=== PATIENT | female | born 1930 | race Caucasian/White ===

== ENCOUNTER → 2016-12-27 | Outpatient (CLI) | payer MEDICARE ==
[~2016-12-27] MED LIST: IOHEXOL 300 MG/ML 75 ML VIAL. IV ONE
[2016-12-27 14:48] LABS: BASO # 0.1 x10^3/uL (0.0-0.2); BASO % 0 % (0-3); EOS # 0.4 x10^3/uL (0.0-0.7); EOS % 3 % (0-3); HEMATOCRIT 42.8 % (36.0-47.0); HEMOGLOBIN 14.4 g/dL (12.0-15.5); LYMPH # 4.6 x10^3/uL (1.0-4.8); LYMPH % 37 % (24-48); MEAN CORPUSCULAR HEMOGLOBIN 31 pg (25-35); MEAN CORPUSCULAR HGB CONC 34 g/dL (31-37); MEAN CORPUSCULAR VOLUME 93 fL (79-100); MONO # 1.4 x10^3/uL (0.0-1.1); MONO % 12 % (0-9); NEUT % 48 % (31-73); PLATELET COUNT 252 x10^3/uL (140-400); RED BLOOD COUNT 4.62 x10^6/uL (3.50-5.40); WHITE BLOOD COUNT 12.5 x10^3/uL (4.0-11.0)
[2016-12-27 14:56] LABS: CALCIUM 9.3 mg/dL (8.5-10.1); CREATININE 0.7 mg/dL (0.6-1.0); GFR 79.5; POTASSIUM 4.2 mmol/L (3.5-5.1)
--- NOTE | 2016-12-27 15:48 | RAD ---
EXAM: CT ANGIOGRAPHY OF THE CHEST WITH AND WITHOUT INTRAVENOUS CONTRAST. HISTORY: Shortness of breath, elevated d-dimer. TECHNIQUE: Computed tomographic angiography of the chest was performed before and after the intravenous administration of 75 mL Omnipaque 300. 3-D maximum intensity projections were also performed. COMPARISON: None. FINDINGS: Images of the upper abdomen reveal changes of cholecystectomy. There is a <3 mm calculus in the right renal collecting system. Bone windows reveal no suspicious lesions. There are chronic left rib fractures. Spinal stimulator electrodes are noted. There are extensive bilateral pulmonary emboli involving right left lower lobe, right lower lobe and right upper lobe. There is also a relatively small saddle embolus involving both main pulmonary arteries. There is no aortic dissection or aneurysm. There are no pathologically enlarged mediastinal or axillary lymph nodes. There is a small pericardial effusion. There are trace pleural effusions on the right greater than left. The heart is mildly enlarged. The thyroid gland is surgically absent or severely atrophic. There is a small airspace opacity in the azygoesophageal recess indicating atelectasis or mild infiltrate. There is a calcified granuloma in the right upper lobe. There is mild atelectasis dependently. IMPRESSION: 1. Extensive bilateral pulmonary emboli. 2. Mild cardiomegaly. Small pericardial and small bilateral pleural effusions. These findings were called to Dr. Stone by Theodore Winston on 12/27/2016 at 1525. *One or more of the following individualized dose reduction techniques were utilized for this examination: 1. Automated exposure control. 2. Adjustment of the mA and/or kV according to patient size. 3. Use of iterative reconstruction technique.
== END | disposition home or self-care (01) ==
LOC: CT 14:17
PROVIDERS: ATTEND Family Medicine
DX: I51.7 Cardiomegaly (principal); I26.99 Other pulmonary embolism without acute cor pulmonale; J90 Pleural effusion, not elsewhere classified; I31.3 Pericardial effusion (noninflammatory); J98.11 Atelectasis; J84.10 Pulmonary fibrosis, unspecified; R79.1 Abnormal coagulation profile; N20.0 Calculus of kidney; Z90.49 Acquired absence of other specified parts of digestive tract
CPT/HCPCS: 36415; 71275; 80048; 85025; Q9967

== ENCOUNTER 2017-01-01 14:34 | Emergency (ER) | payer MEDICARE ==
[~2017-01-01] VITALS: Ht 170.2 cm; Wt 81.6 kg
--- NOTE | 2017-01-01 15:31 | EKG ---
[address] [address] Test Date: 2017-01-01 Test Time: 14:55:21 Pat Name: ROMAIN BISWAS Department: Room: Gender: F New Accounts Representative: : 1930 Requested By: MANA BROWER Order Number: [id number] Reading MD: Measurements Intervals [place] Rate: 85 P: 32 OK: 152 QRS: 7 QRSD: 88 T: 29 QT: 374 QTc: 445 Interpretive Statements SINUS RHYTHM QRS(T) CONTOUR ABNORMALITY CONSISTENT WITH INFERIOR INFARCT PROBABLY OLD ABNORMAL ECG RI6.01 No previous ECG available for comparison
[2017-01-01 15:41] VITALS: BP 170/90
[2017-01-01 15:51] LABS: BASO # 0.1 x10^3/uL (0.0-0.2); BASO % 1 % (0-3); EOS # 0.2 x10^3/uL (0.0-0.7); EOS % 2 % (0-3); HEMATOCRIT 40.3 % (36.0-47.0); HEMOGLOBIN 13.7 g/dL (12.0-15.5); LYMPH # 3.4 x10^3/uL (1.0-4.8); LYMPH % 28 % (24-48); MEAN CORPUSCULAR HEMOGLOBIN 31 pg (25-35); MEAN CORPUSCULAR HGB CONC 34 g/dL (31-37); MEAN CORPUSCULAR VOLUME 92 fL (79-100); MONO # 1.7 x10^3/uL (0.0-1.1); MONO % 13 % (0-9); NEUT # 7.1 x10^3uL (1.8-7.7); NEUT % 57 % (31-73); PLATELET COUNT 296 x10^3/uL (140-400); RED BLOOD COUNT 4.38 x10^6/uL (3.50-5.40); RED CELL DISTRIBUTION WIDTH 13.6 % (11.5-14.5); WHITE BLOOD COUNT 12.5 x10^3/uL (4.0-11.0)
--- NOTE | 2017-01-01 15:53 | RAD ---
INDICATION: known PE, new R cp COMPARISON: CT chest 12/27/2016 FINDINGS: 2 views of chest obtained. Cardiac silhouette is not grossly enlarged. Stimulator again seen at central canal within the thoracic region. Mild blunting of costophrenic angles posteriorly. No definite new region of focal consolidation. IMPRESSION: No definite new region of focal airspace consolidation. Mild blunting of the costophrenic angles which could be seen with small pleural effusion or pleural thickening
[2017-01-01 16:00] LABS: ALBUMIN 3.1 g/dL (3.4-5.0); ALBUMIN/GLOBULIN RATIO 0.8 (1.0-1.7); CREATININE 0.7 mg/dL (0.6-1.0); GFR 79.5; POTASSIUM 4.1 mmol/L (3.5-5.1); TOTAL BILIRUBIN 0.9 mg/dL (0.2-1.0); TOTAL PROTEIN 6.8 g/dL (6.4-8.2)
--- NOTE | 2017-01-01 16:15 | PHYS DOC ---
General Chief Complaint: CHEST PAIN Stated Complaint: CHEST PAIN Time Seen by MD: 14:47 Source: patient, family Exam Limitations: no limitations Problems: History of Present Illness Initial Comments Patient is an 86-year-old female who comes to the ED with her spouse complaining of right sided posterior lower chest discomfort. Patient related that she was diagnosed last week with bilateral pulmonary emboli and that no inpatient treatment was necessary. She was started arms are also and has had no new or worsening symptoms until this morning. She states that this morning she noticed that with deep breaths she has moderate sharp discomfort she points to her right posterior lower chest. She denies any chest discomfort at rest and cannot reproduce it with other position or postural changes. She states she's had mild dyspnea on exertion since before her pulmonary emboli were diagnosed however no new changes with that. She denies any anterior left-sided chest pain, no nausea vomiting diaphoresis arm or neck symptoms. She has been taking Xarelto as prescribed and denies any noticeable bleeding. She denies any cough fever chills headache or body aches but states she was concerned about the discomfort so she has come for evaluation. ED vitals: 98.1, 95, 16, 159/89, 96% on room air CT angiogram results from December 27, 2016 obtained, impression extensive bilateral pulmonary emboli, mild cardiomegaly and small pericardial and small bilateral pleural effusions. Timing/Duration: 4-6 hours, other Severity: moderate Modifying Factors: improves with other (deep breaths only) Associated Symptoms: chest pain Allergies: Coded Allergies: codeine (Verified Allergy, Unknown, 01/01/17) Past Medical History Medical History: other (hypertension, hypothyroid, pulmonary emboli) Surgical History: other (cholecystectomy, hysterectomy, back surgery) Social History Smoker: non-smoker Alcohol: none Drugs: none Review of Systems Constitutional: denies chills, denies diaphoresis, denies fever, denies malaise , denies weakness Respiratory: see HPI, denies orthopnea, denies wheezing Cardiovascular: see HPI, denies edema, denies palpitations, denies syncope Gastrointestinal: denies abdominal pain, denies diarrhea, denies nausea, denies vomiting Genitourinary: denies dysuria, denies frequency, denies hematuria Musculoskeletal: denies back pain, denies joint swelling, denies neck pain Psychiatric/Neurological: denies headache, denies numbness, denies paresthesia , denies weakness Hematologic/Lymphatic: see HPI Physical Exam General Appearance: WD/WN, no apparent distress Eyes: bilateral eye normal inspection, bilateral eye PERRL, bilateral eye EOMI Ear, Nose, Throat: hearing grossly normal, normal ENT inspection Neck: non-tender, supple Respiratory: no respiratory distress, other (mildly decreased breath sounds at the bilateral bases otherwise chest nontender and chief complaint nonreproducible no rales rhonchi or wheezes) Cardiovascular: normal peripheral pulses, regular rate, rhythm Gastrointestinal: non tender, soft Back: no CVA tenderness, no vertebral tenderness Extremities: normal range of motion, non-tender, normal inspection, no calf tenderness, pelvis stable Neurologic/Psychiatric: warp clamper II-XII nml as tested, no motor/sensory deficits, alert, normal mood/affect, oriented x 3 Skin: normal color, warm/dry Orders, Labs, Meds On arrival chest pain not typical for acute coronary syndrome and patient is anticoagulated. Symptoms appear to be musculoskeletal, CBC and chemistry ordered as well as chest x-ray to evaluate for possible pneumonia, pneumothorax , or other abnormal finding. PATIENT: ROMAIN BISWAS ACCOUNT: [id number] : 1930 LOCATION: ER AGE: 86 SEX: F EXAM STATUS: REG ER ORD. PHYSICIAN: MANA BROWER DO REASON: known PE, new R cp PROCEDURE: CHEST PA & LATERAL INDICATION: known PE, new R cp COMPARISON: CT chest 12/27/2016 FINDINGS: 2 views of chest obtained. Cardiac silhouette is not grossly enlarged. Stimulator again seen at central canal within the thoracic region. Mild blunting of costophrenic angles posteriorly. No definite new region of focal consolidation. IMPRESSION: No definite new region of focal airspace consolidation. Mild blunting of the costophrenic angles which could be seen with small pleural effusion or pleural thickening DICTATED AND SIGNED BY: KERVIN KITCHEN MD DATE: 01/01/17 1548 CC: RAN STONE MD; MANA BROWER DO ~ CBC with mild leukocytosis White blood cell count 12,500 otherwise unremarkable labs. I discussed these findings with the patient she expressed no new or progressive symptoms. Unusually high ED volume and prolonged ED course patient and her spouse express eagerness for discharge home. They are agreeable to me calling Dr. Stone to discuss findings. 1619: Dr Stone paged to discuss pt. She is resting comfortably with stable VS, no discomfort except with deep breaths/cough. 1720: I discussed findings with Dr. Stone. He requests that we check repeat CTA to determine if there is further clotting, bleeding, pulmonary infarcts, or other conditions which might need emergent inpatient attention. I discussed this with the patient and she is agreeable. PATIENT: ROMAIN BISWAS ACCOUNT: [id number] : 1930 LOCATION: ER AGE: 86 SEX: F EXAM STATUS: REG ER ORD. PHYSICIAN: MANA BROWER DO REASON: further evaluate for more extensive clot on xarelto PROCEDURE: CT ANGIOGRAPHY CHEST CTA scan of the Chest with Contrast (Pulmonary Embolism protocol) 01/01/2017 Clinical History: Chest pain and shortness of breath. Recently diagnosed with PE. Technique: After the intravenous administration of 75 cc of Isovue-370, contiguous, 0.625 mm axial sections were obtained through the chest. 2.5 mm axial and 3D MIP coronal and sagittal reconstructed images were obtained. One or more of the following individualized dose reduction techniques were utilized for this study: 1. Automated exposure control. 2. Adjustment of the mA and/or kV according to patient size. 3. Use of iterative reconstruction technique. Findings: Comparison study is dated 12/27/2016. Nonocclusive filling defects consistent with pulmonary emboli are seen extending from the distal main pulmonary arteries to involve the right upper lobe, right middle lobe and right lower lobe pulmonary arteries and the left lower lobe pulmonary artery. These have improved since the previous examination. No new filling defect is seen. The heart is mildly enlarged. Atherosclerotic calcification of the thoracic aorta is seen. The thoracic aorta tapers normally. There is a small right pleural effusion. Bilateral lower lobe atelectasis and/or infiltrate is seen which has increased since the previous study. No pneumothorax is noted. IMPRESSION: Interval improvement in the bilateral pulmonary emboli as outlined above. No new pulmonary embolus is seen. Electronically signed by: Dave Valentin MD (01/01/2017 6:43 PM) [facility] DICTATED AND SIGNED BY: DAVE VALENTIN MD DATE: 01/01/171836 CC: RAN STONE MD; MANA BROWER DO ~ Impressions: Pulmonary emboli, improving on Xarelto Small right pleural effusion Questionable atelectasis versus infiltrate 1908: I discussed findings with the patient and her spouse. With slight leukocytosis and new symptoms with questionable infiltrates will treat for community-acquired pneumonia while persisting with Xarelto for pulmonary emboli. Interaction with Xarelto and Zithromax noted some Rocephin and doxycycline given in the emergency department prescription for doxycycline will be given. They are agreeable to close PCP follow-up. Signs and symptoms to monitor, indications for urgent return to ED, and the treatment plan discussed with patient and her spouse at length. They expressed agreement and understanding with the treatment plan. Departure Time of Disposition: 19:08 Disposition: 01 HOME, SELF-CARE Diagnosis: bilateral PE's (improving), small R effusion, Pneu Condition: GOOD Patient Instructions: Pleural Effusion-Brief, Pneumonia, Adult, Xyak-jg-[id number], Pulmonary Embolus Additional Instructions: Rest, no strenuous activity. Aggressive hydration with Gatorade or water. Wkme-cla-mjcizvr Tylenol and ibuprofen as needed. Continue current medications including his Xarelto. Prescription: Doxycycline Follow-up with Dr. Stone in 2-3 days for recheck. Return to ED with new or changing symptoms as discussed. MANA BROWER DO Jan 01, 2017 16:15
[2017-01-01] MEDS ORDERED: IOHEXOL 300 MG/ML 75 ML VIAL. IV ONE (18:00)
--- NOTE | 2017-01-01 18:46 | RAD ---
CTA scan of the Chest with Contrast (Pulmonary Embolism protocol) 01/01/2017 Clinical History: Chest pain and shortness of breath. Recently diagnosed with PE. Technique: After the intravenous administration of 75 cc of Isovue-370, contiguous, 0.625 mm axial sections were obtained through the chest. 2.5 mm axial and 3D MIP coronal and sagittal reconstructed images were obtained. One or more of the following individualized dose reduction techniques were utilized for this study: 1. Automated exposure control. 2. Adjustment of the mA and/or kV according to patient size. 3. Use of iterative reconstruction technique. Findings: Comparison study is dated 12/27/2016. Nonocclusive filling defects consistent with pulmonary emboli are seen extending from the distal main pulmonary arteries to involve the right upper lobe, right middle lobe and right lower lobe pulmonary arteries and the left lower lobe pulmonary artery. These have improved since the previous examination. No new filling defect is seen. The heart is mildly enlarged. Atherosclerotic calcification of the thoracic aorta is seen. The thoracic aorta tapers normally. There is a small right pleural effusion. Bilateral lower lobe atelectasis and/or infiltrate is seen which has increased since the previous study. No pneumothorax is noted. IMPRESSION: Interval improvement in the bilateral pulmonary emboli as outlined above. No new pulmonary embolus is seen. Electronically signed by: Dave Valentin MD (01/01/2017 6:43 PM) [facility]
[2017-01-01] MEDS ORDERED: DOXY100C14 PO (19:14)
[2017-01-01] MEDS ORDERED: CONTRAST GIVEN MC PRN (19:15)
[2017-01-01] MEDS ORDERED: DOXYCYCLINE HYCLATE 100 MG TABLET PO ONE (19:15)
[2017-01-01] MEDS ORDERED: cefTRIAXone IM 1 GM VIAL IM ONE (19:15)
[2017-01-01] MEDS ORDERED: LIDOCAINE 1% Multi-Dose 20 ML VIAL. ONE (19:25)
== END 2017-01-01 19:33 | disposition home or self-care (01) ==
LOC: ER 14:34
DX: I26.99 Other pulmonary embolism without acute cor pulmonale (principal); J90 Pleural effusion, not elsewhere classified; J18.9 Pneumonia, unspecified organism; E03.9 Hypothyroidism, unspecified; I10 Essential (primary) hypertension; Z86.711 Personal history of pulmonary embolism; Z90.49 Acquired absence of other specified parts of digestive tract; Z90.710 Acquired absence of both cervix and uterus; Z88.5 Allergy status to narcotic agent
CPT/HCPCS: 36415; 71020; 71275; 80053; 85025; 93005; 96372; 99285; J0696; Q9967

== ENCOUNTER → 2017-08-27 | Outpatient (CLI) | payer MEDICARE ==
[~2017-08-27] MED LIST changes: +DOXY100C14 PO; -IOHEXOL 300 MG/ML 75 ML VIAL. IV ONE
--- NOTE | 2017-08-27 10:46 | RAD ---
EXAM: Dual energy x-ray absorptiometry (DEXA). HISTORY: Postmenopausal female presents for osteoporosis screening. COMPARISON: None. TECHNIQUE: Dual energy x-ray absorptiometry of the lumbar spine and left hip was performed. Calculation of bone mineral density based on standard deviations above or below the expected young adult normal value (T-score) was completed. FINDINGS: The average bone mineral density in the L1 vertebral body L1-L3 vertebral bodies is 0.960 L1-L3 vertebral bodies is 1.079 g/cmxcm, corresponding with a T-score of -0.8. The average total bone mineral density in the left femoral neck is 0.766 g/cmxcm, corresponding with a T-score of -2.0. IMPRESSION: 1. Osteopenia measured at the left femoral neck. 2. Normal bone mineral density averaged for the L1-L3 vertebral bodies. Note: Definitions established by the World Health Organization: 1. Normal: T-score is -1.0 or above. 2. Osteopenia: T-score is between -1.0 and -2.5 . 3. Osteoporosis: T-score is -2.5 or below. Electronically signed by: Lisy Lovell MD (08/27/2017 10:43 AM) [id number]
== END | disposition home or self-care (01) ==
LOC: DXRAD 09:42
PROVIDERS: ATTEND Family Medicine
DX: Z13.820 Encounter for screening for osteoporosis (principal); M85.88 Other specified disorders of bone density and structure, other site
CPT/HCPCS: 77080

== ENCOUNTER 2018-07-03 18:12 | Inpatient (IN) | payer MEDICARE ==
[~2018-07-03] VITALS: Ht 170.2 cm; Wt 84.0 kg
[2018-07-03] MEDS ORDERED: IV RINGERS SOLUTION,LACTATED 1,000 ML IV SCH (18:31)
[2018-07-03 18:44] LABS: BASO % 0 % (0-3); EOS % 0 % (0-3); HEMATOCRIT 47.1 % (36.0-47.0); HEMOGLOBIN 15.7 g/dL (12.0-15.5); LYMPH # 2.3 x10^3/uL (1.0-4.8); LYMPH % 22 % (24-48); MEAN CORPUSCULAR HEMOGLOBIN 31 pg (25-35); MEAN CORPUSCULAR HGB CONC 33 g/dL (31-37); MEAN CORPUSCULAR VOLUME 93 fL (79-100); MONO # 0.8 x10^3/uL (0.0-1.1); MONO % 8 % (0-9); NEUT # 7.1 x10^3uL (1.8-7.7); NEUT % 69 % (31-73); PLATELET COUNT 265 x10^3/uL (140-400); RED BLOOD COUNT 5.04 x10^6/uL (3.50-5.40); RED CELL DISTRIBUTION WIDTH 14.9 % (11.5-14.5); WHITE BLOOD COUNT 10.2 x10^3/uL (4.0-11.0)
[2018-07-03] MEDS ORDERED: FAMOTIDINE 20 MG/2 ML VIAL IVP ONE (18:45)
[2018-07-03] MEDS ORDERED: ONDANSETRON PF 4 MG/2 ML VIAL. IV ONE (18:45)
--- NOTE | 2018-07-03 18:50 | EKG ---
[address] [address] Test Date: 2018-07-03 Test Time: 18:49:57 Pat Name: ROMAIN BISWAS Department: Room: Gender: F Dosimetrist: SUKHJINDER : 1930 Requested By: VANCE AN Order Number: [id number] Reading MD: Ronny Leon Measurements Intervals [place] Rate: 84 P: 48 OR: 156 QRS: 35 QRSD: 86 T: 62 QT: 378 QTc: 450 Interpretive Statements SINUS RHYTHM NONSPECIFIC ST-T WAVE CHANGES. Electronically Signed On 07-10-2018 11:42:55 CDT by Ronny Leon
[2018-07-03 18:54] LABS: ALBUMIN 3.3 g/dL (3.4-5.0); CALCIUM 9.1 mg/dL (8.5-10.1); CREATININE 0.9 mg/dL (0.6-1.0); DIRECT BILIRUBIN 0.3 mg/dL (0.0-0.2); GFR 59.2; POTASSIUM 3.2 mmol/L (3.5-5.1); TOTAL BILIRUBIN 1.5 mg/dL (0.2-1.0); TOTAL PROTEIN 7.2 g/dL (6.4-8.2)
--- NOTE | 2018-07-03 19:05 | ED.ADGEN ---
Past History Past Medical History: Hypertension, Hypothyroid, Other Past Surgical History: Cholecystectomy, Hysterectomy, Other Alcohol Use: None Drug Use: None Adult General Chief Complaint Chief Complaint ".. I ve been vomiting.. and so many diarrhea's today... I can't count... I have to go now..." HPI HPI Patient is a 88 year old female who presents with above hx and complaints of nausea and multiple episodes of diarrhea starting today. Patient denies any intake of bad food. Patient denies any specific ill contacts. No recent travel. Patient normally follows with Dr. Stone for management of her hypertension, thyroid meds. and anticoagulants. Patient has not been on any antibiotics recently. No history of C. difficile. Pt. normally follows with Dr. Stone. Review of Systems Review of Systems Constitutional: Denies fever or chills [] Eyes: Denies change in visual acuity, redness, or eye pain [] HENT: Denies nasal congestion or sore throat [] Respiratory: Denies cough or shortness of breath [] Cardiovascular: No additional information not addressed in HPI [] GI: Complaints of epigastric abdominal pain, nausea, vomiting, and diarrhea [] : Denies dysuria or hematuria [] Musculoskeletal: Denies back pain or joint pain [] Integument: Denies rash or skin lesions [] Neurologic: Denies headache, focal weakness or sensory changes [] Endocrine: Denies polyuria or polydipsia [] All other systems were reviewed and found to be within normal limits, except as documented in this note. Family History Family History Noncontributory Current Medications Current Medications Current Medications Medications (Trade) Dose Ordered Sig/Shannan Start Time Stop Time Status Last Admin Dose Admin Acetaminophen (Tylenol) 650 mg PRN Q4HRS PRN 07/03/18 21:00 07/04/18 20:59 Famotidine (Pepcid Vial) 20 mg 1X ONCE 07/03/18 18:45 07/03/18 18:47 DC 07/03/18 18:52 20 MG Lactated Ringer's 1,000 ml @ 160 mls/hr Q6H15M 07/03/18 21:00 07/04/18 00:32 160 MLS/HR Ondansetron HCl (Zofran) 4 mg PRN Q4HRS PRN 07/03/18 21:00 07/04/18 20:59 Allergies Allergies Allergies Coded Allergies Type Severity Reaction Last Updated Verified codeine Allergy Unknown 01/01/17 Yes Physical Exam Physical Exam Constitutional: Moderately acute distress, non-toxic appearance. [] HENT: Normocephalic, atraumatic, bilateral external ears normal, oropharynx dry, no oral exudates, nose normal. [] Eyes: PERRLA, EOMI, conjunctiva normal, no discharge. [] Neck: Normal range of motion, no tenderness, supple, no stridor. [] Cardiovascular:Heart rate regular rhythm, no murmur [] Lungs & Thorax: Bilateral breath sounds clear to auscultation [] Abdomen: Bowel sounds hyperactive , soft, generalized tenderness, no masses, no pulsatile masses. [] Patient having active brown-colored diarrhea currently. No focal rebound findings. Multiple surgery scars. Skin: Warm, dry, no erythema, no rash. [] Back: No tenderness, no CVA tenderness. [] Extremities: No tenderness, no cyanosis, no clubbing, ROM intact, no edema. [] Neurologic: Alert and oriented X 3, normal motor function, normal sensory function, no focal deficits noted. [] Psychologic: Affect anxious, judgement normal, mood normal. [] Current Patient Data Vital Signs Vital Signs Date Time Temp Pulse Resp B/P (MAP) Pulse Ox O2 Delivery O2 Flow Rate FiO2 07/03/18 20:50 76 16 86/37 (53) 95 Room Air 07/03/18 18:20 97.7 Lab Results Laboratory Tests Test 07/03/18 18:25 White Blood Count 10.2 x10^3/uL (4.0-11.0) Red Blood Count 5.04 x10^6/uL (3.50-5.40) Hemoglobin 15.7 g/dL (12.0-15.5) H Hematocrit 47.1 % (36.0-47.0) H Mean Corpuscular Volume 93 fL (79-100) Mean Corpuscular Hemoglobin 31 pg (25-35) Mean Corpuscular Hemoglobin Concent 33 g/dL (31-37) Red Cell Distribution Width 14.9 % (11.5-14.5) H Platelet Count 265 x10^3/uL (140-400) Neutrophils (%) (Auto) 69 % (31-73) Lymphocytes (%) (Auto) 22 % (24-48) L Monocytes (%) (Auto) 8 % (0-9) Eosinophils (%) (Auto) 0 % (0-3) Basophils (%) (Auto) 0 % (0-3) Neutrophils # (Auto) 7.1 x10^3uL (1.8-7.7) Lymphocytes # (Auto) 2.3 x10^3/uL (1.0-4.8) Monocytes # (Auto) 0.8 x10^3/uL (0.0-1.1) Eosinophils # (Auto) 0.0 x10^3/uL (0.0-0.7) Basophils # (Auto) 0.0 x10^3/uL (0.0-0.2) Prothrombin Time 10.5 SEC (9.4-11.4) Prothrombin Time INR 1.1 (0.9-1.1) PTT 29 SEC (23-33) Sodium Level 142 mmol/L (136-145) Potassium Level 3.2 mmol/L (3.5-5.1) L Chloride Level 105 mmol/L (98-107) Carbon Dioxide Level 24 mmol/L (21-32) Anion Gap 13 (6-14) Blood Urea Nitrogen 16 mg/dL (7-20) Creatinine 0.9 mg/dL (0.6-1.0) Estimated GFR (Cockcroft-Gault) 59.2 Glucose Level 124 mg/dL (70-99) H Calcium Level 9.1 mg/dL (8.5-10.1) Total Bilirubin 1.5 mg/dL (0.2-1.0) H Direct Bilirubin 0.3 mg/dL (0.0-0.2) H Aspartate Amino Transferase (AST) 23 U/L (15-37) Alanine Aminotransferase (ALT) 21 U/L (14-59) Alkaline Phosphatase 88 U/L (46-116) Creatine Kinase 37 U/L (26-192) Troponin I Quantitative < 0.017 ng/mL (0-0.055) Total Protein 7.2 g/dL (6.4-8.2) Albumin 3.3 g/dL (3.4-5.0) L Amylase Level 27 U/L (25-115) Lipase 54 U/L (73-393) L EKG EKG My interpretation EKG shows a sinus rhythm at 84 bpm. There is some nonspecific contour changes in anterior lateral area. But no findings of acute STEMI of contralateral changes.[] Radiology/Procedures Radiology/Procedures My interpretation of acute abdomen film shows no acute cardiopulmonary findings. No free air in the diaphragm. Does have a spinal stimulator. Does have some air-fluid bowel loops. Has clips in right upper quadrant. Has spinal stimulator battery pack in right lower quadrant. Has severe scoliosis and kyphosis with spurring and rotation.[] Course & Med Decision Making Course & Med Decision Making Pertinent Labs and Imaging studies reviewed. (See chart for details) Pt.admitted to for further hydration and evaluation. [] Final Impression Final Impression 1. Nausea vomiting diarrhea[] 2. Hypokalemia 3.2 3. Dehydration Dragon Disclaimer Dragon Disclaimer This electronic medical record was generated, in whole or in part, using a voice recognition dictation system. Discharge Summary Brief Hospital Course Allergies Allergies Coded Allergies Type Severity Reaction Last Updated Verified codeine Allergy Unknown 01/01/17 Yes Vital Signs Vital Signs Date Time Temp Pulse Resp B/P (MAP) Pulse Ox O2 Delivery O2 Flow Rate FiO2 07/03/18 20:50 76 16 86/37 (53) 95 Room Air 07/03/18 18:20 97.7 Lab Results Laboratory Tests Test 07/03/18 18:25 White Blood Count 10.2 x10^3/uL (4.0-11.0) Red Blood Count 5.04 x10^6/uL (3.50-5.40) Hemoglobin 15.7 g/dL (12.0-15.5) Hematocrit 47.1 % (36.0-47.0) Mean Corpuscular Volume 93 fL (79-100) Mean Corpuscular Hemoglobin 31 pg (25-35) Mean Corpuscular Hemoglobin Concent 33 g/dL (31-37) Red Cell Distribution Width 14.9 % (11.5-14.5) Platelet Count 265 x10^3/uL (140-400) Neutrophils (%) (Auto) 69 % (31-73) Lymphocytes (%) (Auto) 22 % (24-48) Monocytes (%) (Auto) 8 % (0-9) Eosinophils (%) (Auto) 0 % (0-3) Basophils (%) (Auto) 0 % (0-3) Neutrophils # (Auto) 7.1 x10^3uL (1.8-7.7) Lymphocytes # (Auto) 2.3 x10^3/uL (1.0-4.8) Monocytes # (Auto) 0.8 x10^3/uL (0.0-1.1) Eosinophils # (Auto) 0.0 x10^3/uL (0.0-0.7) Basophils # (Auto) 0.0 x10^3/uL (0.0-0.2) Prothrombin Time 10.5 SEC (9.4-11.4) Prothromb Time International Ratio 1.1 (0.9-1.1) Activated Partial Thromboplast Time 29 SEC (23-33) Sodium Level 142 mmol/L (136-145) Potassium Level 3.2 mmol/L (3.5-5.1) Chloride Level 105 mmol/L (98-107) Carbon Dioxide Level 24 mmol/L (21-32) Anion Gap 13 (6-14) Blood Urea Nitrogen 16 mg/dL (7-20) Creatinine 0.9 mg/dL (0.6-1.0) Estimated GFR (Cockcroft-Gault) 59.2 Glucose Level 124 mg/dL (70-99) Calcium Level 9.1 mg/dL (8.5-10.1) Total Bilirubin 1.5 mg/dL (0.2-1.0) Direct Bilirubin 0.3 mg/dL (0.0-0.2) Aspartate Amino Transf (AST/SGOT) 23 U/L (15-37) Alanine Aminotransferase (ALT/SGPT) 21 U/L (14-59) Alkaline Phosphatase 88 U/L (46-116) Creatine Kinase 37 U/L (26-192) Troponin I Quantitative < 0.017 ng/mL (0-0.055) Total Protein 7.2 g/dL (6.4-8.2) Albumin 3.3 g/dL (3.4-5.0) Amylase Level 27 U/L (25-115) Lipase 54 U/L (73-393) Brief Hospital Course Ms. Crystal is a 88 old female who presented with active N/V/Diarrhea. Dehydration and Hypokalemia. Admitted to . Discharge Information Condition at Discharge: Improved, Stable Dischare Medications Current Medications Lactated Ringer's 1,000 ml @ 1,000 mls/hr Q1H IV Last administered on 07/03/18at 18:53; Admin Dose 1,000 MLS/HR; Start 07/03/18 at 18:31; Stop 07/03/18 at 19:30; Status DC Ondansetron HCl (Zofran) 8 mg 1X ONCE IV Last administered on 07/03/18at 18:53; Admin Dose 8 MG; Start 07/03/18 at 18:45; Stop 07/03/18 at 18:47; Status DC Famotidine (Pepcid Vial) 20 mg 1X ONCE IVP Last administered on 07/03/18at 18:52; Admin Dose 20 MG; Start 07/03/18 at 18:45; Stop 07/03/18 at 18:47; Status DC Ondansetron HCl (Zofran) 4 mg PRN Q4HRS PRN IV NAUSEA/VOMITING; Start 07/03/18 at 21:00; Stop 07/04/18 at 20:59 Acetaminophen (Tylenol) 650 mg PRN Q4HRS PRN PO FEVER; Start 07/03/18 at 21:00; Stop 07/04/18 at 20:59 Lactated Ringer's 1,000 ml @ 160 mls/hr Q6H15M IV Last administered on 07/04/18at 00:32; Admin Dose 160 MLS/HR; Start 07/03/18 at 21:00 Active Scripts Active Reported Ocuvite Adult 50 Plus Softgel (C,E,Zinc,Copper 24/Om3/Lut/Pineda) 1 Each Capsule 1 Each PO DAILY Fish Oil 1,000 Mg Capsule ([place]-3 Fatty Acids/Fish Oil) 1 Each Capsule 1 Each PO BID Aspir-Low (Aspirin) 81 Mg Tablet.dr 81 Mg PO DAILY Metoprolol Succinate ( Xl ) (Metoprolol Succinate) 50 Mg Tab.er.24h 50 Mg PO DAILY Levothyroxine Sodium 100 Mcg Tablet 100 Mcg PO DAILY06 Eliquis (Apixaban) 5 Mg Tablet 5 Mg PO BID Levon Disclaimer This chart was dictated in whole or in part using Voice Recognition software in a busy, high-work load, and often noisy Emergency Department environment. It may contain unintended and wholly unrecognized errors or omissions. VANCE AN MD Jul 03, 2018 19:05
[2018-07-03] MEDS ORDERED: ACETAMINOPHEN 325 MG TABLET PO PRN (21:00)
[2018-07-03] MEDS ORDERED: ONDANSETRON PF 4 MG/2 ML VIAL. IV PRN (21:00)
[2018-07-03] MEDS: metroNIDAZOLE 500 MG TABLET PO SCH (21:20)
[2018-07-03] MEDS: IV RINGERS SOLUTION,LACTATED 1,000 ML IV SCH (21:20)
[2018-07-03] MEDS ORDERED: POTASSIUM CHLORIDE 20 MEQ/15 ML ORAL LIQUID. PO ONE (21:30)
[2018-07-03 22:31] VITALS: BP_SYST 104; BP_SYST 87; BP_DIAS 54; BP_DIAS 62
[2018-07-03] MEDS ORDERED: METO50TA29 PO (22:50)
[2018-07-03] MEDS ORDERED: LEVO100T5 PO (22:50)
[2018-07-03] MEDS ORDERED: [UNRECOGNIZED DRUG - OTHER] PO (22:50)
[2018-07-03] MEDS ORDERED: APIX5TAB3 PO (22:50)
[2018-07-03] MEDS ORDERED: OMEG1CAP6 PO (22:50)
[2018-07-03] MEDS ORDERED: ASPI81TA50 PO (22:50)
[2018-07-04] MEDS: IV RINGERS SOLUTION,LACTATED 1,000 ML IV SCH ×4 (00:32→22:00)
[2018-07-04 05:18] VITALS: BP 98/62
[2018-07-04] MEDS: LEVOTHYROXINE 100 MCG TABLET PO SCH (05:52)
[2018-07-04 06:19] LABS: BASO % 0 % (0-3); EOS % 0 % (0-3); HEMATOCRIT 36.2 % (36.0-47.0); HEMOGLOBIN 12.2 g/dL (12.0-15.5); LYMPH # 3.3 x10^3/uL (1.0-4.8); LYMPH % 40 % (24-48); MEAN CORPUSCULAR HEMOGLOBIN 32 pg (25-35); MEAN CORPUSCULAR HGB CONC 34 g/dL (31-37); MEAN CORPUSCULAR VOLUME 94 fL (79-100); MONO % 12 % (0-9); NEUT % 48 % (31-73); PLATELET COUNT 200 x10^3/uL (140-400); RED BLOOD COUNT 3.86 x10^6/uL (3.50-5.40); WHITE BLOOD COUNT 8.4 x10^3/uL (4.0-11.0)
[2018-07-04 06:25] LABS: CALCIUM 8.3 mg/dL (8.5-10.1); CREATININE 0.8 mg/dL (0.6-1.0); GFR 67.8; POTASSIUM 3.5 mmol/L (3.5-5.1)
[2018-07-04] MEDS: metroNIDAZOLE 500 MG TABLET PO SCH ×3 (07:59→20:54)
--- NOTE | 2018-07-04 08:32 | RAD ---
2 view abdominal series and PA view chest x-ray Clinical indications: Nausea and vomiting diarrhea since early a.m. FINDINGS: Multiple air-fluid levels are seen throughout the abdomen and pelvis. No obstructive bowel pattern is evident. No free intraperitoneal air is seen. Cholecystectomy clips are present. Electronic stimulator device is present extending into the region of the thoracic spine. Dextroscoliosis and degenerative lumbar spondylosis is seen. Chest x-ray is compared to a prior study dated January 01, 2017. No acute lung infiltrate or pleural effusion or pulmonary edema or pneumothorax is seen. Old granulomatous disease of the right midlung zone is seen which is stable. The heart size is mildly enlarged. The mediastinum and pulmonary vasculature and both darren are stable. Old healed left lateral rib cage fractures are seen. IMPRESSION: Multiple air-fluid levels which may be seen with enterocolitis. Mild cardiomegaly. No acute lung infiltrate. Electronically signed by: Christian Stone MD (07/04/2018 8:29 AM) [id number]
[2018-07-04 10:25] VITALS: BP 96/59
[2018-07-04] MEDS: APIXABAN 5 MG TABLET. PO SCH ×2 (10:33→20:54)
[2018-07-04] MEDS: OMEGA-3 FATTY ACIDS/FISH OIL 1,000 MG CAPSULE. PO SCH ×2 (10:33→20:54)
[2018-07-04 16:01] VITALS: BP 99/62
[2018-07-04] MEDS: PANTOPRAZOLE IV 40 MG VIAL. IVP SCH ×2 (16:39→20:55)
[2018-07-04] MEDS: LOPERAMIDE 2 MG CAPSULE PO PRN ×2 (16:43→21:38)
--- NOTE | 2018-07-04 16:46 | PN ---
DATE: 07/04/2018 HISTORY OF PRESENT ILLNESS: The patient was admitted yesterday with recurrent bouts of nausea, vomiting and diarrhea. Her vomiting has subsided last night. Apparently, she continued to have recurrent episode of diarrhea up to 6 or 7 times this morning. She stated that she does not feel weak as yesterday. She has received lot of IV fluid. Her main complaint was severe heartburn. She has been started on a full liquid diet and so far tolerated that. PHYSICAL EXAMINATION: GENERAL: When I examined her this afternoon, she looked pale, but no jaundice, cyanosis, or thyromegaly. No jugular venous distension. No limb edema. VITAL SIGNS: Her heart rate was 65, blood pressure was 99/62, temperature was 98.2, respiratory rate was 18, and oxygen saturation was 92% on room air. HEAD, EYES, EARS, NOSE, AND THROAT: Showed normocephalic, atraumatic. NECK: Supple. HEART: Showed normal first and second heart sounds. No gallop, rub or murmur. CHEST: Clear to auscultation. No crepitation or rhonchi. ABDOMEN: Distended, soft, nontender. NEUROLOGIC: She is hard of hearing, but otherwise all cranial nerves intact. She moves extremities without difficulty. She ambulates without assistance or assistive devices. Her intake was 2700, no output was recorded. LABORATORY DATA: Her lab work so far showed that her C. diff toxins were negative. Her white cell count was 8400, hemoglobin is down to 12.2, hematocrit 36.2, MCV 94 and platelet count 200,000. Her serum sodium was 144, potassium 3.5, chloride 109, bicarbonate 29, anion gap of 6, BUN 11, creatinine was 0.8, estimated GFR was 68 mL per minute. Her glucose 92 and calcium was 8.3. ASSESSMENT: Acute gastroenteritis. Other medical problems include hypertension, hypothyroidism, pulmonary embolism, peripheral vascular disease and osteoarthritis. The plan is to start her on Protonix 40 mg IV twice a day. We can advance diet as tolerated. Continue with IV fluid. We will repeat her lab works tomorrow, decide on further management accordingly. ANGUS NORTON MD DR: KAY/blas JOB#: [id number] / [id number]
--- NOTE | 2018-07-04 17:15 | HP ---
ADMIT DATE: 07/03/2018 HISTORY OF PRESENT ILLNESS: The patient is an 88-year-old female patient, a resident at [facility], who came to the Emergency Room with a complaint of recurrent bouts of nausea, vomiting as well as diarrhea that has been going on for over the last 2 days. There is no blood in the vomitus. Denied any abdominal pain. Denied any dizziness or lightheadedness. Did complain of generalized weakness. She was extensively investigated in the Emergency Room and she was clearly dehydrated. She was also hypokalemic and was admitted for rehydration. We will send stool for C. diff, although she denied any antibiotic treatment over last few months. PAST MEDICAL HISTORY: Significant for hypertension, hypothyroidism, pulmonary embolism, peripheral vascular disease and osteoarthritis. PAST SURGICAL HISTORY: Significant for total abdominal hysterectomy, back surgery, cholecystectomy, and bilateral cataract extraction. ALLERGIES: SHE IS ALLERGIC TO CODEINE, AND NITROFURANTOIN. MEDICATIONS: She is currently on apixaban 5 mg twice a day, omega-3 fatty acid 1000 mg twice a day, metoprolol succinate 50 mg daily, aspirin 81 mg once a day, levothyroxine sodium 100 mcg p.o. daily and Ocuvite ____ softgel one daily. FAMILY HISTORY: She has one brother, of lung cancer. One brother has brain tumor and has had brain surgery and he is physically disabled. Her sister is alive and has had vein stripping. Her father at age of 92 for possible stomach cancer. Mother had had breast cancer. SOCIAL HISTORY: She lives at [facility]. She never smoked, does not drink alcohol. 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 REVIEW OF SYSTEMS: Denied any blurring of vision. She has bilateral cataract extraction, but denied any glaucoma or macular degeneration. 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 Denied any nosebleeds, stuffy nose or postnasal drip. Denied any sore throat, sore tongue, toothache, hoarseness of voice or difficulty swallowing. Did have nausea and vomiting as well as diarrhea, but denied any hematemesis, melena or hematochezia. Denied any dysuria, frequency or hematuria. Denied any chest pain. Did complain of heartburn. Denied any orthopnea or paroxysmal nocturnal dyspnea. Denied any cough, phlegm or hemoptysis. Denied any chills, rigors, or fever. Denied any dizziness, lightheadedness, or vertigo. PHYSICAL EXAMINATION: GENERAL: On arrival to the Emergency Room, she looked well and was clearly in no apparent respiratory distress. She was slightly pale, but no jaundice, cyanosis, or thyromegaly. No jugular venous distension. No lower limb edema. VITAL SIGNS: Her heart rate was 96, blood pressure was 98/59, temperature was 97.7, respiratory rate was 24, and oxygen saturation was 96% on room air. HEAD, EYES, EARS, NOSE AND THROAT: Showed normocephalic, atraumatic. NECK: Supple. HEART: Showed normal first and second heart sounds. No gallop, rub or murmur. CHEST: Clear to auscultation. No crepitation or rhonchi. ABDOMEN: Distended, soft, nontender. No guarding or rigidity. No organomegaly. All hernial orifice are intact. Bowel sounds are normal. NEUROLOGIC: She was awake, alert, responding appropriately. All cranial nerves are intact. EXTREMITIES: She moves extremities without difficulty. She ambulates without assistance or assistive devices. LABORATORY DATA: On admission showed a serum sodium 142, potassium 3.2, chloride 105, bicarbonate 24, anion gap of 13, BUN 16, creatinine 0.9, estimated GFR was 59 mL per minute, glucose 124, calcium was 9.1. Total bilirubin is 1.5. AST, ALT, alkaline phosphatase were normal. CK was 37. Troponin was less than 0.017. Total protein was 7.2, albumin was 3.3. Amylase and lipase were normal. Her prothrombin time was 10.5, INR 1.1, aPTT was 29. We sent stool for C. diff. The patient was started on IV fluid in the form of lactated Ringer's at 160 mL per hour. We will continue with all her medication. She was started on Flagyl 500 mg 3 times a day. Her acute abdomen series showed that the patient has multiple air fluid levels are seen throughout the abdomen and pelvis. No obstructive bowel pattern is event. No free intraperitoneal air is seen. Cholecystectomy clips are present. Electronic stimulator device is present extending into the ____ thoracic spine. Dextroscoliosis and degenerative lumbar spondylosis is seen. Chest x-ray is compared to prior study and showed no acute lung infiltrate or pleural effusion or pulmonary edema or pneumothorax. She has old granulomatous disease on the right mid lung zone, which is stable. The heart size is mildly enlarged. The mediastinum and pulmonary vasculature and both darren are stable. All the left lateral rib cage fractures are seen. ASSESSMENT AND PLAN: The patient was admitted with acute gastroenteritis. We will obviously continue with IV fluid. We will monitor her electrolytes and send stool for C. diff and also stool for culture and sensitivity. ANGUS NORTON MD DR: KAY/blas JOB#: [id number] / [id number]
[2018-07-04 19:20] VITALS: BP 107/66
[2018-07-04] MEDS ORDERED: PANTOPRAZOLE IV 40 MG VIAL. IVP SCH (21:00)
[2018-07-04 23:29] VITALS: BP 99/63
[2018-07-05] MEDS: IV RINGERS SOLUTION,LACTATED 1,000 ML IV SCH ×2 (01:53→11:47)
[2018-07-05 04:43] VITALS: BP 108/63
[2018-07-05] MEDS: LEVOTHYROXINE 100 MCG TABLET PO SCH (05:28)
[2018-07-05 07:51] LABS: ALBUMIN 2.4 g/dL (3.4-5.0); ALBUMIN/GLOBULIN RATIO 0.8 (1.0-1.7); CALCIUM 8.1 mg/dL (8.5-10.1); CREATININE 0.8 mg/dL (0.6-1.0); GFR 67.8; POTASSIUM 3.2 mmol/L (3.5-5.1); TOTAL BILIRUBIN 0.5 mg/dL (0.2-1.0); TOTAL PROTEIN 5.3 g/dL (6.4-8.2)
[2018-07-05 08:07] LABS: BASO % 0 % (0-3); EOS # 0.1 x10^3/uL (0.0-0.7); EOS % 1 % (0-3); HEMATOCRIT 35.6 % (36.0-47.0); HEMOGLOBIN 11.8 g/dL (12.0-15.5); LYMPH # 3.7 x10^3/uL (1.0-4.8); LYMPH % 38 % (24-48); MEAN CORPUSCULAR HEMOGLOBIN 31 pg (25-35); MEAN CORPUSCULAR HGB CONC 33 g/dL (31-37); MEAN CORPUSCULAR VOLUME 95 fL (79-100); MONO # 1.4 x10^3/uL (0.0-1.1); MONO % 14 % (0-9); NEUT # 4.4 x10^3uL (1.8-7.7); NEUT % 46 % (31-73); PLATELET COUNT 193 x10^3/uL (140-400); RED BLOOD COUNT 3.76 x10^6/uL (3.50-5.40); RED CELL DISTRIBUTION WIDTH 15.2 % (11.5-14.5); WHITE BLOOD COUNT 9.6 x10^3/uL (4.0-11.0)
[2018-07-05] MEDS: PANTOPRAZOLE IV 40 MG VIAL. IVP SCH ×2 (08:40→20:37)
[2018-07-05] MEDS: MULTIVITAMIN I-VITE TABLET. PO SCH (08:41)
[2018-07-05] MEDS: APIXABAN 5 MG TABLET. PO SCH ×2 (08:41→20:37)
[2018-07-05] MEDS: metroNIDAZOLE 500 MG TABLET PO SCH ×3 (08:41→20:36)
[2018-07-05] MEDS: METOPROLOL SUCC 24HR ER 50 MG TAB.ER.24H. PO SCH (08:41)
[2018-07-05] MEDS: ASPIRIN 81 MG TAB.CHEW PO SCH (08:41)
[2018-07-05] MEDS: OMEGA-3 FATTY ACIDS/FISH OIL 1,000 MG CAPSULE. PO SCH ×2 (08:41→20:36)
[2018-07-05] MEDS: POTASSIUM CHLORIDE 20 MEQ TABLET.ER. PO SCH ×2 (09:32→20:36)
[2018-07-05 11:50] VITALS: BP 106/63
[2018-07-05] MEDS: LOPERAMIDE 2 MG CAPSULE PO PRN (14:04)
[2018-07-05 15:01] VITALS: BP 137/75
[2018-07-05 15:03] VITALS: BP_SYST 140; BP_SYST 150; BP_DIAS 74; BP_DIAS 79
[2018-07-05] MEDS: POTASSIUM CL 40MEQ D5-0.45NACL 1,000 ML IV SCH (15:16)
[2018-07-05 19:30] VITALS: BP 113/73
--- NOTE | 2018-07-05 20:29 | PN ---
DATE: 07/05/2018 SUBJECTIVE: The patient is resting, slightly propped up in bed, in no apparent respiratory distress. She apparently continued to have diarrhea. Her blood pressure continued to be in the low side and she continued to have mild hypokalemia. Her stool for C. diff was negative. Her nasal screen for MRSA by PCR was negative; however, the stool culture is still pending at the time of this dictation. PHYSICAL EXAMINATION: GENERAL: When I examined her, she looked pale, no jaundice, cyanosis, or thyromegaly. No jugular venous distension. No lower limb edema. VITAL SIGNS: Her heart rate was 56, blood pressure was 106/63, temperature was 98.3, respiratory rate was 20, and oxygen saturation was 90% on room air. HEAD, EYES, EARS, NOSE AND THROAT: Showed normocephalic, atraumatic. NECK: Supple. HEART: Showed normal first and second sounds. No gallop, rub or murmur. CHEST: Clear to auscultation. No crepitation or rhonchi. ABDOMEN: Distended, soft, nontender. No guarding or rigidity. No organomegaly. All hernial orifice intact. Bowel sounds normal. ASSESSMENT: Acute gastroenteritis, nausea and vomiting has largely subsided, the patient continued to have diarrhea and continued to be hypokalemic. Other medical problems include: A. Hypertension. B. Hypothyroidism. C. Pulmonary embolism. D. Peripheral vascular disease. E. Osteoarthritis. F. Gastroesophageal reflux disease. PLAN: To continue with the IV fluid, continue with the Protonix 40 mg and advance diet as tolerated. I will change her IV fluid to some potassium and if her diarrhea subsided tomorrow and her electrolytes resolved, we will discharge her home tomorrow. ANGUS NORTON MD DR: KAY/blas JOB#: [id number] / [id number]
[2018-07-05] MEDS: LACTOBACILLUS RHAMNOSUS GG 1 CAPSULE. PO SCH (20:36)
[2018-07-05 23:20] VITALS: BP 149/77
[2018-07-06] MEDS: LOPERAMIDE 2 MG CAPSULE PO PRN ×2 (00:40→08:43)
[2018-07-06] MEDS: POTASSIUM CL 40MEQ D5-0.45NACL 1,000 ML IV SCH ×2 (00:41→10:30)
[2018-07-06 05:47] VITALS: BP 122/75
[2018-07-06] MEDS: LEVOTHYROXINE 100 MCG TABLET PO SCH (05:49)
[2018-07-06 07:37] LABS: CALCIUM 8.4 mg/dL (8.5-10.1); CREATININE 0.7 mg/dL (0.6-1.0); GFR 79.2; POTASSIUM 4.4 mmol/L (3.5-5.1)
[2018-07-06] MEDS: ASPIRIN 81 MG TAB.CHEW PO SCH (08:39)
[2018-07-06] MEDS: LACTOBACILLUS RHAMNOSUS GG 1 CAPSULE. PO SCH (08:39)
[2018-07-06] MEDS: POTASSIUM CHLORIDE 20 MEQ TABLET.ER. PO SCH (08:39)
[2018-07-06] MEDS: MULTIVITAMIN I-VITE TABLET. PO SCH (08:39)
[2018-07-06] MEDS: PANTOPRAZOLE IV 40 MG VIAL. IVP SCH (08:39)
[2018-07-06] MEDS: OMEGA-3 FATTY ACIDS/FISH OIL 1,000 MG CAPSULE. PO SCH (08:39)
[2018-07-06] MEDS: metroNIDAZOLE 500 MG TABLET PO SCH (08:39)
[2018-07-06] MEDS: APIXABAN 5 MG TABLET. PO SCH (08:39)
[2018-07-06] MEDS: METOPROLOL SUCC 24HR ER 50 MG TAB.ER.24H. PO SCH (08:41)
[2018-07-06 11:15] VITALS: BP 121/78
[2018-07-06 12:32] LABS: BASO # 0.2 x10^3/uL (0.0-0.2); BASO % 2 % (0-3); EOS # 0.3 x10^3/uL (0.0-0.7); EOS % 3 % (0-3); HEMATOCRIT 38.3 % (36.0-47.0); HEMOGLOBIN 12.7 g/dL (12.0-15.5); LYMPH % 39 % (24-48); MEAN CORPUSCULAR HEMOGLOBIN 31 pg (25-35); MEAN CORPUSCULAR HGB CONC 33 g/dL (31-37); MEAN CORPUSCULAR VOLUME 94 fL (79-100); MONO # 1.5 x10^3/uL (0.0-1.1); MONO % 14 % (0-9); NEUT # 4.4 x10^3uL (1.8-7.7); NEUT % 42 % (31-73); PLATELET COUNT 203 x10^3/uL (140-400); RED BLOOD COUNT 4.09 x10^6/uL (3.50-5.40); RED CELL DISTRIBUTION WIDTH 14.7 % (11.5-14.5); WHITE BLOOD COUNT 10.4 x10^3/uL (4.0-11.0)
--- NOTE | 2018-07-06 13:20 | DS ---
DATE OF DISCHARGE: 07/06/2018 HOSPITAL COURSE: The patient is an 88-year-old female patient, resident at [facility], was admitted with recurrent bouts of nausea, vomiting and diarrhea. She was hypokalemic, dehydrated and her nausea, vomiting and diarrhea has largely subsided. She was initially hemoconcentrated. Her hemoglobin was 16, hematocrit 47. Today is 12 and 38. Her potassium was 3.2, today is 4.4. Her stool for C. diff was negative for Shigella, salmonella and Campylobacter. She remained hemodynamically stable, afebrile, has had no further episodes of nausea, vomiting, and no diarrhea, no abdominal pain. Decision was made to discharge her home to continue on all her home medication. PHYSICAL EXAMINATION: GENERAL: On examining here in the afternoon, she looked well and was clearly in no apparent respiratory distress. No pallor, jaundice, cyanosis or thyromegaly. No jugular venous distension. No limb edema. VITAL SIGNS: Her heart rate was 61, blood pressure was 121/78, temperature was 98.2, respiratory rate 20, and oxygen saturation was 93%. HEAD, EYES, EARS, NOSE AND THROAT: Showed normocephalic, atraumatic. NECK: Supple. HEART: Showed normal first and second heart sounds. No gallop, rub or murmur. CHEST: Clear to auscultation. No crepitation or rhonchi. ABDOMEN: Distended, soft, nontender. NEUROLOGIC: She was awake, alert, responding appropriately. All cranial nerves intact. She moves extremities without difficulty. We checked her orthostatics and it showed no evidence of any postural hypertension. LABORATORY DATA: This morning showed a serum sodium 143, potassium 4.4, chloride 110, bicarbonate 26, anion gap of 7, BUN 4, creatinine 0.7, estimated GFR was 79 mL per minute. Her glucose was 100, calcium was 8.4. Her white cell count was 10,400, hemoglobin 12.7, hematocrit 38, MCV 94 and platelet count 203,000 with normal manual differential. Her prothrombin time was 10.5, INR of 1.1, aPTT was 29. Her stool for C. diff was negative. Nasal screen for MRSA by PCR was negative. DISCHARGE MEDICATIONS: She was discharged home to continue on apixaban 5 mg twice a day, aspirin 81 mg once a day, levothyroxine sodium 100 mcg once a day, metoprolol succinate 50 mg once a day and omega 3 fatty acids 1000 mg capsule twice a day. FINAL DISCHARGE DIAGNOSES: 1. Acute gastroenteritis, resolved. 2. Hypokalemia, resolved. 3. Other medical problems include: A. Hypertension. B. Hypothyroidism. C. Pulmonary embolism. D. Peripheral vascular disease. E. Osteoarthritis. F. Gastroesophageal reflux disease. ANGUS NORTON MD DR: KAY/blas JOB#: [id number] / [id number]
== END 2018-07-06 13:32 | disposition home or self-care (01) | DRG 392 ==
LOC: ER 18:12 → 1 SOUTH 21:00
PROVIDERS: ADMIT Internal Medicine; ATTEND Internal Medicine
DX: K52.9 Noninfective gastroenteritis and colitis, unspecified (principal); E03.9 Hypothyroidism, unspecified; E86.0 Dehydration; E87.6 Hypokalemia; I10 Essential (primary) hypertension; I73.9 Peripheral vascular disease, unspecified; K21.9 Gastro-esophageal reflux disease without esophagitis; M19.90 Unspecified osteoarthritis, unspecified site; Z80.1 Family history of malignant neoplasm of trachea, bronchus and lung; Z86.711 Personal history of pulmonary embolism; Z80.3 Family history of malignant neoplasm of breast; Z90.710 Acquired absence of both cervix and uterus; Z98.41 Cataract extraction status, right eye; Z98.42 Cataract extraction status, left eye; Z88.8 Allergy status to other drugs, medicaments and biological substances
CPT/HCPCS: 36415; 74022; 80048; 80053; 80076; 82150; 82550; 83690; 84484; 85025; 85610; 85730; 87045; 87493; 87641; 93005; C9113; J2405; J3490; J7042; J7120

== ENCOUNTER → 2018-10-22 | Outpatient (CLI) | payer MEDICARE ==
[~2018-10-22] MED LIST changes: +APIX5TAB3 PO; +ASPI81TA50 PO; +LEVO100T5 PO; +METO50TA29 PO; +OMEG1CAP6 PO; +[UNRECOGNIZED DRUG - OTHER] PO
--- NOTE | 2018-10-22 16:19 | RAD ---
CLINICAL HISTORY: Left lower extremity pain COMPARISON: None available. TECHNIQUE: Ultrasound evaluation of the bilateral lower extremities was performed from the groin to the upper calf with adair scale, spectral and color doppler evaluation. FINDINGS: The bilateral common femoral vein, and femoral vein, including the saphenous-femoral junction are normal in appearance. Color and spectral Doppler evaluation demonstrates normal spontaneous flow, augmentation and phasicity. The bilateral popliteal vein and visualized calf veins also demonstrate normal compressibility and flow. IMPRESSION: 1. No evidence for DVT in the bilateral lower extremities. Electronically signed by: Jamal Dai MD (10/22/2018 4:16 PM) [facility]
== END | disposition home or self-care (01) ==
LOC: US 14:13
PROVIDERS: ATTEND Family Medicine
DX: M79.605 Pain in left leg (principal); Z86.711 Personal history of pulmonary embolism
CPT/HCPCS: 93971

== ENCOUNTER → 2018-11-12 | Outpatient (CLI) | payer MEDICARE ==
--- NOTE | 2018-11-12 10:58 | RAD ---
CT HEAD INDICATION: Dizziness COMPARISON: None Available. Exposure: One or more of the following individualized dose reduction techniques were utilized for this examination: 1. Automated exposure control 2. Adjustment of the mA and/or kV according to patient size 3. Use of iterative reconstruction technique TECHNIQUE: 5 mm contiguous axial images were obtained from the skull base to the vertex in both bone and soft tissue algorithm. FINDINGS: No abnormal attenuation within the brain parenchyma. No evidence of acute intracranial hemorrhage. No extra-axial fluid collections. No mass effect or midline shift. Ventricular size is appropriate. Basal cisterns are patent. No fractures identified.Mckeon-white differentiation is preserved.Globes and orbits are within normal limits. Paranasal sinuses and mastoid air cells are clear. IMPRESSION: No acute intracranial findings. Electronically signed by: Nadir bIarra MD (11/12/2018 10:55 AM) [id number]
== END | disposition home or self-care (01) ==
LOC: CT 10:32
PROVIDERS: ATTEND Family Medicine
DX: H81.393 Other peripheral vertigo, bilateral (principal)
CPT/HCPCS: 70450

== ENCOUNTER 2019-04-07 17:47 | Emergency (ER) | payer MEDICARE ==
[~2019-04-07] VITALS: Ht 170.2 cm; Wt 86.9 kg
[2019-04-07] MEDS ORDERED: MECLIZINE 12.5 MG TABLET. PO STA (18:26)
[2019-04-07] MEDS ORDERED: ONDANSETRON PF 4 MG/2 ML VIAL. IV ONE (18:30)
[2019-04-07] MEDS ORDERED: IV NORMAL SALINE 500ML 500 ML IV ONE (18:45)
--- NOTE | 2019-04-07 18:45 | PHYS DOC ---
Past History Past Medical History: Hypertension, Hypothyroid, Other Past Surgical History: Cholecystectomy, Hysterectomy, Other Alcohol Use: None Drug Use: None Adult General Chief Complaint Chief Complaint: DIZZY/LIGHT HEADED HPI HPI Patient is a 88-year-old female who presents with complaint of acute onset of dizziness and nausea that started earlier this afternoon. Patient states that she was just standing and then became dizzy. She states that it feels like the room was slowly spinning and states that when she changes position the symptoms are worse. She states that when symptoms worsen, she feels more sick to her stomach. She denies having had any vomiting but feels like she needs to. She denies any abdominal pain or chest pain. She denies any visual changes. She denies any headache. She denies any lateralizing weakness or speech deficits.[] Review of Systems Review of Systems Constitutional: Denies fever or chills [] Eyes: Denies change in visual acuity, redness, or eye pain [] Respiratory: Denies cough or shortness of breath [] Cardiovascular: No additional information not addressed in HPI [] Neurologic: Denies headache, focal weakness or sensory changes. Complains of vertiginous dizziness. [] All other systems were reviewed and found to be within normal limits, except as documented in this note. Current Medications Current Medications Current Medications Medications (Trade) Dose Ordered Sig/[facility] Start Time Stop Time Status Last Admin Dose Admin Meclizine HCl (Antivert) 25 mg 1X STAT 04/07/19 18:26 04/07/19 18:42 DC Ondansetron HCl (Zofran) 4 mg 1X ONCE 04/07/19 18:30 04/07/19 18:42 DC Allergies Allergies Allergies Coded Allergies Type Severity Reaction Last Updated Verified codeine Allergy Intermediate 07/06/18 Yes nitrofurantoin Allergy Intermediate 07/06/18 Yes Physical Exam Physical Exam Constitutional: Well developed, well nourished, no acute distress, non-toxic appearance. [] HENT: Normocephalic, atraumatic, bilateral external ears normal, oropharynx moist, no oral exudates, nose normal. [] Eyes: PERRLA, EOMI, conjunctiva normal, no discharge. [] Neck: Normal range of motion, no tenderness, supple, no stridor. [] Cardiovascular: Regular rate and rhythm[] Lungs & Thorax: Bilateral breath sounds clear to auscultation [] Abdomen: Bowel sounds normal, soft, no tenderness. [] Skin: Warm, dry, no erythema, no rash. [] Extremities: No tenderness, no cyanosis, no clubbing, ROM intact. [] Neurologic: Alert and oriented X 3, no focal deficits noted. [] EKG EKG [] Radiology/Procedures Radiology/Procedures [] Course & Med Decision Making Course & Med Decision Making Pertinent Labs and Imaging studies reviewed. (See chart for details) [] Dragon Disclaimer Dragon Disclaimer This electronic medical record was generated, in whole or in part, using a voice recognition dictation system. Departure Departure: Impression: Primary Impression: Benign paroxysmal vertigo Disposition: HOME, SELF-CARE Condition: STABLE Referrals: RAN COHEN MD (PCP) Patient Instructions: Benign Positional Vertigo Scripts Ondansetron (ONDANSETRON ODT) 4 Mg Tab.rapdis 1 TAB PO PRN Q6-8HRS PRN for NAUSEA, #12 TAB Prov: AB GARCIA Jr. DO 04/07/19 Meclizine Hcl (MECLIZINE HCL) 25 Mg Tablet 1 TAB PO PRN TID PRN for DIZZINESS, #30 TAB Prov: AB GARCIA Jr. DO 04/07/19 Problem Qualifiers Primary Impression: Benign paroxysmal vertigo Laterality: unspecified laterality Qualified Codes: H81.10 - Benign paroxysmal vertigo, unspecified ear AB GARCIA Jr. DO Apr 07, 2019 18:45
[2019-04-07 19:09] LABS: BASO % 0 % (0-3); EOS # 0.1 x10^3/uL (0.0-0.7); EOS % 1 % (0-3); HEMATOCRIT 43.7 % (36.0-47.0); HEMOGLOBIN 14.2 g/dL (12.0-15.5); LYMPH # 2.7 x10^3/uL (1.0-4.8); LYMPH % 26 % (24-48); MEAN CORPUSCULAR HEMOGLOBIN 31 pg (25-35); MEAN CORPUSCULAR HGB CONC 32 g/dL (31-37); MEAN CORPUSCULAR VOLUME 97 fL (79-100); MONO # 1.3 x10^3/uL (0.0-1.1); MONO % 12 % (0-9); NEUT # 6.2 x10^3uL (1.8-7.7); NEUT % 61 % (31-73); PLATELET COUNT 228 x10^3/uL (140-400); RED BLOOD COUNT 4.53 x10^6/uL (3.50-5.40); RED CELL DISTRIBUTION WIDTH 14.9 % (11.5-14.5); WHITE BLOOD COUNT 10.3 x10^3/uL (4.0-11.0)
[2019-04-07 19:17] LABS: CALCIUM 8.6 mg/dL (8.5-10.1); CREATININE 0.8 mg/dL (0.6-1.0); GFR 67.8; POTASSIUM 3.9 mmol/L (3.5-5.1)
[2019-04-07 19:25] LABS: ALBUMIN 3.2 g/dL (3.4-5.0); DIRECT BILIRUBIN 0.3 mg/dL (0.0-0.2); TOTAL BILIRUBIN 0.8 mg/dL (0.2-1.0); TOTAL PROTEIN 6.5 g/dL (6.4-8.2)
[2019-04-07 19:30] LABS: BILIRUBIN,URINE NEG (NEG); CLARITY,URINE HAZY; COLOR,URINE STRAW; GLUCOSE,URINE NEG (NEG)
[2019-04-07 19:31] LABS: BACTERIA,URINE FEW /HPF (0-FEW); NITRITE,URINE NEG (NEG); RBC,URINE OCC /HPF (0-2); SQUAMOUS EPITHELIAL CELL,UR FEW /LPF
[2019-04-07 20:48] LABS: INFLUENZA A PATIENT NEGATIVE (NEGATIVE); INFLUENZA B PATIENT NEGATIVE (NEGATIVE)
[2019-04-07 21:06] VITALS: BP 103/54
[2019-04-07] MEDS ORDERED: ONDA4TAB12 PO (21:06)
[2019-04-07] MEDS ORDERED: MECL-75 PO (21:06)
--- NOTE | 2019-04-08 22:21 | EKG ---
[address] [address] Test Date: 2019-04-07 Test Time: 19:58:58 Pat Name: ROMAIN BISWAS Department: Room: Gender: F Bar Hostess: : [id number] Requested By: AB GARCIA Order Number: [id number] Reading MD: Measurements Intervals [place] Rate: 69 P: 42 AR: 188 QRS: 30 QRSD: 90 T: 39 QT: 424 QTc: 456 Interpretive Statements SINUS RHYTHM QRS(T) CONTOUR ABNORMALITY CONSIDER ANTEROLATERAL MYOCARDIAL DAMAGE POSSIBLY ABNORMAL ECG RI6.01 No previous ECG available for comparison
== END 2019-04-07 21:15 | disposition home or self-care (01) ==
LOC: ER 17:47
DX: H81.10 Benign paroxysmal vertigo, unspecified ear (principal); I10 Essential (primary) hypertension; E03.9 Hypothyroidism, unspecified; Z88.5 Allergy status to narcotic agent; Z88.8 Allergy status to other drugs, medicaments and biological substances
CPT/HCPCS: 36415; 80048; 80076; 81001; 83735; 85025; 87086; 87804; 93005; 96374; 99285; J2405; J7040; J8597